=== PATIENT | female | born 1940 | race Hispanic/Latino ===

== ENCOUNTER 2019-02-01 05:46 | Day surgery (SDC) | payer MEDICARE ==
[2019-02-01] MEDS ORDERED: ANCEF/STERILE WATER 2 GM/20 ML 2 GM/20 ML SYRINGE IV NR (06:00)
[2019-02-01] MEDS ORDERED: LACTATED RINGERS 1,000 ML IV SCH (07:00)
--- NOTE | 2019-02-01 07:30 | Anesthesia Day of Surgery ---
Anesthesia Day of Surgery - Day of Surgery Patient Examined: Yes Patient H&P Reviewed: Yes Patient is NPO: Yes
--- NOTE | 2019-02-01 07:38 | Anesthesia Consultation ---
Anesthesia Consult and Med Hx Date of service: 02/01/19 - Airway Anesthetic Teeth Evaluation: Dentures (Pt has metal bars to hold dentures and has kept them in during prior surgeries) ROM Head & Neck: Adequate Mental/Hyoid Distance: Adequate Mallampati Class: Class II Intubation Access Assessment: Good - Pre-Operative Health Status ASA Pre-Surgery Classification: ASA2 Proposed Anesthetic Plan: General - Pulmonary Hx Smoking: Yes (Former) Hx Asthma: Yes (As a child) Hx Respiratory Symptoms: Yes (Seasonal allergies) - Cardiovascular System Hx Hypertension: Yes Hx Heart Murmur: Yes - Central Nervous System Hx Back Pain: Yes (S/P back surgery) Hx Psychiatric Problems: Yes - Gastrointestinal Hx Gastroesophageal Reflux Disease: Yes - Hematic Hx Anemia: Yes (Thalassemia minor) - Other Systems Hx Cancer: No
[2019-02-01] MEDS ORDERED: DIPRIVAN 10 MG/ML IV ONE (08:00)
[2019-02-01] MEDS ORDERED: XYLOCAINE MPF 2% ONE (08:00)
[2019-02-01] MEDS ORDERED: ZOFRAN IV PRN (08:00)
[2019-02-01] MEDS ORDERED: DECADRON ONE (08:00)
[2019-02-01] MEDS ORDERED: SUBLIMAZE IV PRN (08:00)
[2019-02-01] MEDS ORDERED: ZOFRAN ONE (08:00)
[2019-02-01] MEDS ORDERED: SUBLIMAZE ONE (08:01)
[2019-02-01] MEDS ORDERED: XYLOCAINE 1%/ EPI 1:100,000 INFILTRATI ONE ×2 (08:17→08:48)
[2019-02-01] MEDS ORDERED: NACL 0.9% IR ONE (08:48)
[2019-02-01] MEDS ORDERED: NEO SYNEPHRINE ONE (10:30)
[2019-02-01] MEDS: DILAUDID IV PRN ×2 (10:46→11:31)
[2019-02-01] MEDS ORDERED: VERSED ONE (11:07)
[2019-02-01] MEDS ORDERED: VERSED IV ONE (11:13)
--- NOTE | 2019-02-01 11:46 | Operative Report ---
Operative Report Operative Report: Plastic Surgery Operative Note Preoperative diagnosis: Bilateral mastodynia, symptomatic macromastia Post Operative diagnosis: Same Procedure: Bilateral explant with capsulectomy Surgeon: Dr. Jeannine Mariscal Cad Librarian: None Anesthesia: General Estimated blood loss: Minimal Specimen: En bloc resection of periprosthetic capsule with implant Indications: This patient is a 78-year-old female who presented with complaint of painful implants as well as excessively heavy implants since cosmetic augmentation performed several years ago. Patient states that she had neck and back and shoulder pain and also pain in around the breast which she attributes to the implants. She sought consultation for removal of the implants and does not want them replaced. We discussed the benefits as well as the risks of this procedure including but not limited to hematoma, seroma, infection, bleeding, loss of volume, breast ptosis, disfigurement, scarring, and the need for further surgery. Patient understood and accepted these risks and desired to proceed with explant and capsulectomy. Informed consent was obtained. Procedure: After review of pertinent history and physical exam findings, the patient was brought into the operating room and placed supine on the OR table. After induction of adequate general endotracheal anesthesia, the entire chest was prepped and draped in the usual sterile surgical fashion. To begin, on the right breast, 1% lidocaine with epinephrine was infiltrated into the skin where the incisions were marked. A #15 blade was used to make the incision followed by electrocautery to take gaining the dissection down through breast tissue to the level of the periprosthetic capsule. Of note, this was a submammary implant procedure and pectoralis muscle was noted to be intact posterior to the implant. Once this was identified, a periprosthetic dissection was performed, keeping it intact with the implant inside. The implant was noted to be intact, without gross evidence of rupture. Once the entire capsule and implant were removed en bloc, attention was turned to hemostasis. This was achieved with electrocautery after which the implant pocket was thoroughly irrigated with saline. Noting no active bleeding, and 19 [place] Jairon drain was placed within the submammary pocket and secured with 2-0 nylon suture. We then began a 3 layer closure using 2-0 Monocryl suture followed by 3-0 Monoderm Quill in 2 layers. The exact same procedure was repeated on the left side. Of note, a much smaller implant was removed from the left side and patient was noted to have more rosebud breast tissue on this side as well. All incisions were then sealed with Dermabond and dressed with Telfa and Tegaderm. The patient was then placed in a bra binder and awakened from general anesthesia. She was then transferred to recovery room in stable condition. There were no complications. All sponge needle and instrument counts were correct at the end of the case.
[2019-02-01 12:27] VITALS: BP 150/91
--- NOTE | 2019-02-01 19:04 | Post Anesthesia Evaluation ---
- Post Anesthesia Evaluation Patient Participated: Yes Airway Patent: Yes Stable Respiratory Function: Yes Nausea/Vomiting: No Temp > 96.8F: Yes Pain Manageable: Yes Adequeate Hydration: Yes Anesthesia Complications: No Block Receding Appropriately: Not Applicable Patient on Ventilator: No
== END 2019-02-01 05:47 | disposition home or self-care (01) ==
LOC: OR 05:46
PROVIDERS: ATTEND Plastic Surgery
DX: N64.4 Mastodynia (principal); N62 Hypertrophy of breast; G43.909 Migraine, unspecified, not intractable, without status migrainosus; J45.909 Unspecified asthma, uncomplicated; K21.9 Gastro-esophageal reflux disease without esophagitis; Z90.710 Acquired absence of both cervix and uterus; Z79.899 Other long term (current) drug therapy; Z88.0 Allergy status to penicillin; Z98.41 Cataract extraction status, right eye; Z88.5 Allergy status to narcotic agent; Z98.42 Cataract extraction status, left eye; Z98.82 Breast implant status; Z98.890 Other specified postprocedural states; Z86.2 Personal history of diseases of the blood and blood-forming organs and certain disorders involving the immune mechanism; Z88.8 Allergy status to other drugs, medicaments and biological substances
CPT/HCPCS: 19371; 88302; J0690; J1100; J1170; J2250; J2370; J2405; J2704; J3010; J7120

== ENCOUNTER 2019-02-01 21:42 | Inpatient (IN) | payer MEDICARE ==
[2019-02-01] MEDS ORDERED: TYLENOL PO PRN (22:19)
[2019-02-01] MEDS ORDERED: ZOFRAN IV PRN (22:19)
[2019-02-01] MEDS ORDERED: SODIUM CHLORIDE FLUSH SYRINGE 10 ML IV PRN (22:19)
[2019-02-01] MEDS ORDERED: LACTATED RINGERS 1,000 ML IV SCH (23:00)
[2019-02-02] MEDS: REGLAN PO PRN (02:18)
[2019-02-02] MEDS: ULTRAM PO PRN ×2 (02:18→10:20)
[2019-02-02] MEDS ORDERED: SOLU-Medrol IV PRN (05:23)
[2019-02-02] MEDS: BENADRYL PO PRN ×2 (05:34→11:00)
[2019-02-02] MEDS: NORCO 10/325 PO PRN ×3 (05:35→22:04)
[2019-02-02] MEDS ORDERED: NACL 0.9% 500 ML 500 ML IV ONE (05:37)
[2019-02-02] MEDS: ROBAXIN PO SCH ×3 (05:38→23:26)
[2019-02-02 07:06] LABS: Basophils % (Auto) 0.1 % (0.0-1.8); Lymphocytes % (Auto) 13.4 % (13.4-35.0); Mean Corpuscular HGB Conc 31 % (30-34); Monocytes # (Auto) 0.7 K/mm3 (0.0-0.8); Monocytes % (Auto) 9.4 % (0.0-7.3); Platelet Count 236 K/mm3 (140-440); Red Blood Count 2.89 M/mm3 (3.65-5.03)
[2019-02-02 07:20] LABS: Hematocrit 18.2 % (30.3-42.9); Hemoglobin 5.6 gm/dl (10.1-14.3); Mean Corpuscular Volume 63 fl (79-97)
--- NOTE | 2019-02-02 08:33 | Event Note ---
Date: 02/02/19
[2019-02-02] MEDS ORDERED: NACL 0.9% 500 ML 500 ML ONE ×2 (10:53→17:14)
--- NOTE | 2019-02-02 14:22 | Progress Note ---
Subjective Date of service: 02/02/19 Principal diagnosis: Syncope; Acute blood loss anemia Interval history: Plastic Surgery Progress Note This patient is a 78 year old female who underwent bilateral breast implant removal with capsulectomy on 02/01/19 in the morning. By evening after discharge she reports removing her bra binder, shortly after which point her right drain output began to increase dramatically. She then reports "passing out", which prompted her to call an ambulance. She was transported to [facility] where an H&H drawn came back at 7.4 and she had 75cc of bloody drainage in her bulb. I spoke with the ER phsyican and coordinated a direct admit to have her transferred to [facility] for further management. Overnight she reports pain, denies sob, cp or dizziness but is complaining of anxiety. She is used to taking 10mg of Vicodin every 6 hours for pain, so she is demanding this dose in-house. Physical Exam: AF; P 100's, BP 120/40's overnight. HEENT: NCAT; EOMI CVS: S1/S2, RRR Lungs: CTAB Breast: Left breast exam incisions clean and dry, unremarkable, drain output serosanguinous; right breast incisions clean and dry, drain output bloody, 25cc; exam suspicious for hematoma. Abd: Soft, nt/nd Extr: Warm, moves all extremities A/P POD #1 s/p bilateral explant with capsulectomy, now with active bleeding and hematoma of the right breast, s/p syncopal episode, Hgb now 5.4. For STAT blood transfusion. She will need blood from the [place] as she has rare antibodies from prior transfusions Patient revealed a history of Thalassemia today. We will consult Heme/Onc for further management recommendations. Plan for return to the OR for evacuation of hematoma, closure. Patient will return to step-down unit. Objective - Constitutional Vitals: Vital Signs - 12hr 02/02/19 02/02/19 02/02/19 02:18 05:35 08:08 Temperature 98.8 F Pulse Rate 103 H Respiratory 20 20 18 Rate Blood Pressure 126/45 O2 Sat by Pulse 99 Oximetry 02/02/19 02/02/19 02/02/19 10:48 11:15 11:30 Temperature 98.7 F 98.7 F Pulse Rate 105 H 95 H Respiratory 18 18 Rate Blood Pressure 134/46 130/51 O2 Sat by Pulse 100 96 95 Oximetry 02/02/19 11:39 Temperature Pulse Rate 105 H Respiratory Rate Blood Pressure O2 Sat by Pulse Oximetry - Labs CBC & Chem 7: 02/02/19 06:42 Labs: Abnormal lab results 02/02/19 02/02/19 Range/Units 06:42 06:48 RBC 2.89 L (3.65-5.03) M/mm3 Hgb 5.6 L* (10.1-14.3) gm/dl Hct 18.2 L* (30.3-42.9) % MCV 63 L (79-97) fl MCH 20 L (28-32) pg RDW 17.0 H (13.2-15.2) % [place] % (Auto) 9.4 H (0.0-7.3) % Lymph # 1.0 L (1.2-5.4) K/mm3 Seg Neutrophils % 77.1 H (40.0-70.0) % Crossmatch See Detail Medications & Allergies - Medications Allergies/Adverse Reactions: Allergies ammonium [From [place]ren[place]] Allergy (Verified 01/31/19 10:56) Respiratory Arrest codeine Allergy (Verified 01/31/19 10:56) Shortness of Breath herbal drugs [From [place]] Allergy (Verified 01/31/19 10:56) Respiratory Arrest magnesium gluconate [From [place]] Allergy (Verified 01/31/19 10:56) Respiratory Arrest Penicillins Allergy (Verified 01/31/19 10:56) Anaphylaxis potassium [From [place]] Allergy (Verified 01/31/19 10:56) Respiratory Arrest pregabalin [From Lyrica] Allergy (Verified 01/31/19 10:56) Disoriented prochlorperazine [From Compazine] Allergy (Verified 01/31/19 10:56) Shortness of Breath sodium [From [place]] Allergy (Verified 01/31/19 10:56) Respiratory Arrest tramadol Allergy (Verified 02/02/19 11:36) Shortness of Breath valerian [From [place]] Allergy (Verified 01/31/19 10:56) Respiratory Arrest benzin Allergy (Uncoded 01/31/19 10:56) Blisters, rash A skin adhesive Home Medications: Home Medications Medication Instructions Recorded Confirmed Last Taken Type HYDROcodone/ACETAMINOPHEN [Vicodin 1 tab PO Q6HR PRN 01/31/19 02/01/19 02/01/19 03:40 History HP 10-300 mg TAB] Lisinopril [Zestril TAB] 10 - 20 mg PO DAILY 01/31/19 01/31/19 01/31/19 08:00 History Montelukast Sodium 10 mg PO HS PRN 01/31/19 02/01/19 01/31/19 18:00 History Omeprazole 20 mg PO DAILY PRN 01/31/19 01/31/19 01/31/19 08:00 History methOCARBAMOL [Robaxin TAB] 500 mg PO Q6H PRN 01/31/19 02/01/19 01/31/19 20:00 History Active Medications: Generic Name Dose Route Start Last Admin Trade Name Freq PRN Reason Stop Dose Admin Acetaminophen 650 mg 02/01/19 22:19 02/02/19 11:00 Tylenol PO 650 mg Q6H PRN Administration Pain MILD(1-3)/Fever >100.5/SCANLON Acetaminophen/Hydrocodone Bitart 1 each 02/02/19 05:20 02/02/19 11:54 [place] 10/325 PO 1 each Q6H PRN Administration Pain, Moderate (4-6) Diphenhydramine HCl 25 mg 02/01/19 22:19 02/02/19 11:00 Benadryl PO 25 mg Q8H PRN Administration Itching Lactated Ringer's 1,000 mls @ 125 mls/hr 02/01/19 23:00 02/02/19 02:12 Lactated Ringers IV 125 mls/hr DIRECT DWIGHT Administration Methocarbamol 750 mg 02/02/19 06:00 02/02/19 11:58 Robaxin PO 750 mg Q6H DWIGHT Administration Methylprednisolone Sodium Succinate 40 mg 02/02/19 05:23 Solu-Medrol IV Q6H PRN Anaphylaxis Metoclopramide HCl 10 mg 02/01/19 22:19 02/02/19 02:18 Reglan PO 10 mg Q6H PRN Administration Nausea And Vomiting Ondansetron HCl 4 mg 02/01/19 22:19 Zofran IV Q8H PRN N/V unrelieved by Reglan Sodium Chloride 10 ml 02/01/19 22:19 02/02/19 02:15 Sodium Chloride Flush Syringe 10 Ml IV 10 ml PRN PRN Administration LINE FLUSH
[2019-02-02] MEDS ORDERED: MORPHINE ONE (14:34)
[2019-02-02] MEDS ORDERED: SUBLIMAZE ONE (14:34)
[2019-02-02] MEDS ORDERED: DIPRIVAN 10 MG/ML IV ONE (14:35)
[2019-02-02] MEDS ORDERED: VERSED ONE (14:47)
[2019-02-02] MEDS ORDERED: PHENYLEPHRINE/NS Syringe 1,000 MCG/10 ML IV ONE (15:12)
[2019-02-02] MEDS ORDERED: NACL 0.9% IR ONE ×2 (15:31→15:50)
[2019-02-02] MEDS ORDERED: HESPAN 500 ML IV ONE (15:53)
--- NOTE | 2019-02-02 16:50 | Operative Report ---
Operative Report Operative Report: Plastic Surgery Operative Note Preoperative Diagnosis: Right breast hematoma s/p right breast explant and caps ulectomy Postoperative Diagnosis: Same Procedure: Evacuation of hematoma, washout and closure Surgeon: Dr. Jeannine Mariscal Credit Relationship Manager: None Specimen: none EBL: 10ml Indications: This patient is a 78 year old female who was admitted last night postoperatively for complaint of syncope and increase in her right breast drain output several hours after undergoing explant with capsulectomy. Patient was discharged with minimal drain outputs, but reports taking her binder at home because she felt like it was too tight. Shortly thereafter, the drain outputs began to increase dramatically and she had a syncopal episode witnessed by her . She was transferred by ambulance to [facility], where she was noted to have acute blood loss anemia with a hemoglobin of 7.4. Patient was then transferred to [facility] for further management and admitted to Telemetry where a type and cross was ordered. She was noted to have antibodies that makes her blood type rare, so the [place] was contacted for PRBC's. Upon arrival transfusion was initiated and she was taken urgently to the OR for evacuation of hematoma and washout. Procedure: After review pertinent history and physical exam findings patient was brought into the operating room and placed supine on the OR table. After induction of adequate general endotracheal anesthesia the right chest was p repped and draped in the usual sterile surgical fashion. To begin, the Dermabond of the right breast incision was removed as well as the old drain. The incision was reopened using a Metzenbaum scissors to cut the existing Monoderm Quill sutures and an access to the submammary pocket. Once inside, 350-400 mL of hematoma was evacuated with suction and the pocket, which was noted to have scattered small bleeding fat but no discrete large source of bleeding, was irrigated using Pulsavac and further examined. Electrocautery was used for hemostasis. Disha was then applied for chemical hemostasis and a new 19 Fr Jairon drain was placed and secured with 2-0 Nylon suture. The wound was then closed in 3 layers using 2-0 Monocryl and 3-0 Monoderm Quill. All incisions were then sealed with Dermabond. Patient was then awakened from general anesthesia and transferred to recovery in stable condition. She tolerated the procedure well. There were no complications. All sponge, needle and instrument counts were correct at the end of the case.
[2019-02-02] MEDS: DILAUDID IV PRN ×2 (17:10→17:20)
--- NOTE | 2019-02-02 18:20 | History and Physical Report ---
History of Present Illness Date of examination: 02/02/19 Date of admission: 02/02/19 14:21 Medications and Allergies Allergies Allergy/AdvReac Type Severity Reaction Status Date / Time ammonium [From [place]renitas] Allergy Respiratory Verified 01/31/19 10:56 Arrest codeine Allergy Shortness Verified 01/31/19 10:56 of Breath herbal drugs [From [place]] Allergy Respiratory Verified 01/31/19 10:56 Arrest magnesium gluconate Allergy Respiratory Verified 01/31/19 10:56 [From [place]] Arrest Penicillins Allergy Anaphylaxis Verified 01/31/19 10:56 potassium [From [place]] Allergy Respiratory Verified 01/31/19 10:56 Arrest pregabalin [From Lyrica] Allergy Disoriented Verified 01/31/19 10:56 prochlorperazine Allergy Shortness Verified 01/31/19 10:56 [From Compazine] of Breath sodium [From [place]] Allergy Respiratory Verified 01/31/19 10:56 Arrest tramadol Allergy Shortness Verified 02/02/19 11:36 of Breath valerian [From [place]] Allergy Respiratory Verified 01/31/19 10:56 Arrest benzin Allergy Blisters, Uncoded 01/31/19 10:56 rash Home Medications Medication Instructions Recorded Confirmed Last Taken Type HYDROcodone/ACETAMINOPHEN [Vicodin 1 tab PO Q6HR PRN 01/31/19 02/01/19 02/01/19 03:40 History HP 10-300 mg TAB] Lisinopril [Zestril TAB] 10 - 20 mg PO DAILY 01/31/19 01/31/19 01/31/19 08:00 History Montelukast Sodium 10 mg PO HS PRN 01/31/19 02/01/19 01/31/19 18:00 History Omeprazole 20 mg PO DAILY PRN 01/31/19 01/31/19 01/31/19 08:00 History methOCARBAMOL [Robaxin TAB] 500 mg PO Q6H PRN 01/31/19 02/01/19 01/31/19 20:00 History Active Meds: Active Medications Acetaminophen (Tylenol) 650 mg PO Q6H PRN PRN Reason: Pain MILD(1-3)/Fever >100.5/SCANLON Last Admin: 02/02/19 11:00 Dose: 650 mg Documented by: Acetaminophen/Hydrocodone Bitart ([place] 10/325) 1 each PO Q6H PRN PRN Reason: Pain, Moderate (4-6) Last Admin: 02/02/19 11:54 Dose: 1 each Documented by: Diphenhydramine HCl (Benadryl) 25 mg PO Q8H PRN PRN Reason: Itching Last Admin: 02/02/19 11:00 Dose: 25 mg Documented by: Hydromorphone HCl (Dilaudid) 0.5 mg IV Q10MIN PRN PRN Reason: Pain , Severe (7-10) Stop: 02/03/19 17:06 Last Admin: 02/02/19 17:20 Dose: 0.5 mg Documented by: Lactated Ringer's (Lactated Ringers) 1,000 mls @ 125 mls/hr IV DIRECT DWIGHT Last Admin: 02/02/19 02:12 Dose: 125 mls/hr Documented by: Methocarbamol (Robaxin) 750 mg PO Q6H DWIGHT Last Admin: 02/02/19 11:58 Dose: 750 mg Documented by: Methylprednisolone Sodium Succinate (Solu-Medrol) 40 mg IV Q6H PRN PRN Reason: Anaphylaxis Metoclopramide HCl (Reglan) 10 mg PO Q6H PRN PRN Reason: Nausea And Vomiting Last Admin: 02/02/19 02:18 Dose: 10 mg Documented by: Ondansetron HCl (Zofran) 4 mg IV Q8H PRN PRN Reason: N/V unrelieved by Reglan Sodium Chloride (Sodium Chloride Flush Syringe 10 Ml) 10 ml IV PRN PRN PRN Reason: LINE FLUSH Last Admin: 02/02/19 02:15 Dose: 10 ml Documented by: Exam - Constitutional Vitals: Temp Pulse Resp BP Pulse Ox 97.8 F 88 15 158/47 100 02/02/19 17:30 02/02/19 17:30 02/02/19 17:30 02/02/19 17:30 02/02/19 17:30 Results - Labs CBC & Chem 7: 02/02/19 06:42 Labs: Laboratory Last Values WBC 7.6 K/mm3 (4.5-11.0) 02/02/19 06:42 RBC 2.89 M/mm3 (3.65-5.03) L 02/02/19 06:42 Hgb 5.6 gm/dl (10.1-14.3) L* 02/02/19 06:42 Hct 18.2 % (30.3-42.9) L* 02/02/19 06:42 MCV 63 fl (79-97) L 02/02/19 06:42 MCH 20 pg (28-32) L 02/02/19 06:42 MCHC 31 % (30-34) 02/02/19 06:42 RDW 17.0 % (13.2-15.2) H 02/02/19 06:42 Plt Count 236 K/mm3 (140-440) 02/02/19 06:42 Lymph % (Auto) 13.4 % (13.4-35.0) 02/02/19 06:42 [place] % (Auto) 9.4 % (0.0-7.3) H 02/02/19 06:42 Eos % (Auto) 0.0 % (0.0-4.3) 02/02/19 06:42 Baso % (Auto) 0.1 % (0.0-1.8) 02/02/19 06:42 Lymph # 1.0 K/mm3 (1.2-5.4) L 02/02/19 06:42 [place] # 0.7 K/mm3 (0.0-0.8) 02/02/19 06:42 Eos # 0.0 K/mm3 (0.0-0.4) 02/02/19 06:42 Baso # 0.0 K/mm3 (0.0-0.1) 02/02/19 06:42 Seg Neutrophils % 77.1 % (40.0-70.0) H 02/02/19 06:42 Seg Neutrophils # 5.8 K/mm3 (1.8-7.7) 02/02/19 06:42 Blood Type AB NEGATIVE 02/02/19 06:48 Antibody Screen Positive 02/02/19 06:48 Antibody Identification Anti-D (Actively Aquired) 02/02/19 06:48 Crossmatch See Detail 02/02/19 06:48
[2019-02-02] MEDS: MORPHINE IV PRN (21:02)
[2019-02-03] MEDS: MORPHINE IV PRN ×6 (00:04→20:47)
[2019-02-03] MEDS: NORCO 10/325 PO PRN ×4 (04:44→22:48)
[2019-02-03] MEDS: REGLAN PO PRN ×3 (04:44→22:49)
[2019-02-03] MEDS: BENADRYL PO PRN ×3 (04:46→22:49)
--- NOTE | 2019-02-03 05:26 | Event Note ---
Date: 02/02/19 [id number]
--- NOTE | 2019-02-03 05:56 | Event Note ---
Date: 02/02/19 See H/p in reports Acute blood loss anemia S/p Breast implant removal Syncope yesterday sec to Hypovolemia and blood loss. HTN
[2019-02-03] MEDS: ROBAXIN PO SCH ×4 (06:30→23:02)
--- NOTE | 2019-02-03 06:44 | History and Physical Report ---
CHIEF COMPLAINT: 1. Syncope. 2. Severe blood loss anemia. HISTORY OF PRESENT ILLNESS: A 78-year-old female was admitted last night perioperatively for syncope and increased drainage from her right breast drain. The patient had a bilateral implant removal. Apparently, the patient took her binder at home out, because it was too tight. After taking the binder out, the drain outputs began to increase dramatically and she had a syncopal episode witnessed by her . The patient called the EMS and the ambulance took her to [facility] where she was noted to have acute blood loss anemia with a hemoglobin of 7.4. The patient was transferred to [facility] for further management and was admitted to telemetry where a type and cross was ordered. She was noted to have antibodies that made her blood type rare. The [place] was contacted to give 1 unit of PRBCs. Upon arrival, transfusion was initiated and she was taken urgently to the OR for evacuation of hematoma and washout. The patient was taken to the OR and hematoma of 300-400 mL from the right breast was evacuated. Post-evacuation, the patient was in pain, but was doing relatively well. The patient is being admitted to [facility] for further observation. PAST MEDICAL HISTORY: Significant for hypertension, on lisinopril 10 mg daily. PAST SURGICAL HISTORY: Breast implants many years ago. Breast implant removal on 02/01/2019 and hematoma removal from the right breast on 02/02/2019. SOCIAL HISTORY: Does not smoke. No alcohol, no recreational drugs. FAMILY HISTORY: Hypertension. REVIEW OF SYSTEMS: Significant for severe pain in the surgical site on the right breast and the left breast, more so in the right breast region. Otherwise, review of systems negative. PHYSICAL EXAMINATION: GENERAL: Elderly female, cooperative during examination, in pain. VITAL SIGNS: Temperature 97.6, pulse is 100, blood pressure is 155/78. Repeat pulse rate was 88. HEENT: Unremarkable. Pupils equal and reactive. NECK: Supple, no lymphadenopathy, no thyromegaly. LUNGS: Clear to auscultation and percussion. Good air entry. BREASTS: Both the breasts in binders and drains present. CARDIOVASCULAR: S1, S2 heard. No gallop, no murmur, no rub. Apical impulse in left fifth intercostal space in midclavicular line. ABDOMEN: Soft and benign. No hepatosplenomegaly, no guarding, no rigidity. Hernial orifices are normal. EXTREMITIES: Good pedal pulses. No pedal edema. CENTRAL NERVOUS SYSTEM: Alert and oriented x 4, nonfocal exam. LABORATORY DATA: Significant for hemoglobin of 5.6 and hematocrit of 18.2, platelet count of 236,000. ASSESSMENT AND PLAN: 1. Acute anemia secondary to blood loss. The patient to be transfused 1-2 units of packed red blood cells. The patient has lot of antibodies. It is difficult to get the blood from the [place], [place] to provide the blood 1-2 units. 2. Right breast hematoma evacuated. Breast surgery consult placed with Dr. Mariscal. 3. Hypertension. We will initiate blood pressure medicines when the blood pressure goes up. Presently, the patient's blood pressure is in the normal range. The patient had syncope yesterday because of hypotension. 4. Syncope secondary to blood loss anemia and hypotension. No syncope workup because the etiology is very clear secondary to blood loss anemia and hypovolemia. 5. Deep venous thrombosis prophylaxis, sequential compression devices only. 6. Pain management. Morphine 4 mg q. 3 p.r.n. The patient already on very low dose morphine pump. 7. Also, gastrointestinal prophylaxis. CRITICAL CARE STATEMENT: The high probability of a clinically significant, sudden or life-threatening deterioration of the hematologic, pulmonary, cardiac and renal systems required my full and direct attention, intervention, and personal management. The aggregate critical care time was 35 minutes. This time is in addition to time spent performing reported procedures, but includes the following, data review and interpretation, patient assessment and monitoring of vital signs, documentation and medication orders and management. DISCHARGE PLANNING: Whenever the patient is hemodynamically stable and the blood counts are stable, the patient can be discharged. JOB# [id number] ANJELICA/EBONY
--- NOTE | 2019-02-03 07:17 | Hem/Onc Progress Note ---
Assessment and Plan 1. Microcytic anemia, likely secondary to bleed. There is a mention of thalassemia. RBC count is low. At this time, it is predominantly iron deficiency. 2. Multiple antibodies. The patient says she was transfused in and since then, she has multiple antibodies. I spoke to the blood bank. They are trying to find appropriate match. 3. For the breast implant removal and capsulectomy-related bleeding, surgical team is taking her to Operating Room. 4. We will look into iron supplement, deficiency investigation and follow the patient. iv iron trial pt says alpha thal trait pt denies allergy to sodium IV iron ferrlecit oral MVI - Patient Problems (1) Anemia Status: Acute Qualifiers: Anemia type: iron deficiency Iron deficiency anemia type: other iron deficiency Qualified Code(s): D50.8 - Other iron deficiency anemias Subjective Date of service: 02/03/19 Principal diagnosis: anemia Interval history: s/p sx Objective - Exam Narrative Exam: Pain - chest - post sx General appearance no acute distress Performance status limited self care Eyes - no icterus ENT - no bleeding LNs cervical not palpable Neck - no LN Respiratory Normal Breath sounds - CTA CVS S1 S2 + Extremities no edema General GI Soft Rectal deferred female - deferred Skin warm Musculoskeletal moving extremitites Neurologically awake - answers questions - Constitutional Vitals: Last Vital Signs Temp 98.8 F 02/03/19 03:57 Pulse 88 02/02/19 18:55 Resp 11 L 02/03/19 04:44 BP 145/55 02/02/19 18:55 Pulse Ox 100 02/02/19 20:38 - Labs Lab Results: Laboratory Results - last 24 hr 02/02/19 02/02/19 06:42 06:48 WBC 7.6 RBC 2.89 L Hgb 5.6 L* Hct 18.2 L* MCV 63 L MCH 20 L MCHC 31 RDW 17.0 H Plt Count 236 Lymph % (Auto) 13.4 Baso % (Auto) 0.1 Lymph # 1.0 L Blood Type AB NEGATIVE Antibody Screen Positive Antibody Identification Anti-D (Actively Aquired) Crossmatch See Detail Medications & Allergies - Medications Allergies/Adverse Reactions: Allergies ammonium [From Serenitas] Allergy (Verified 01/31/19 10:56) Respiratory Arrest codeine Allergy (Verified 01/31/19 10:56) Shortness of Breath herbal drugs [From [place]] Allergy (Verified 01/31/19 10:56) Respiratory Arrest magnesium gluconate [From [place]] Allergy (Verified 01/31/19 10:56) Respiratory Arrest Penicillins Allergy (Verified 01/31/19 10:56) Anaphylaxis potassium [From [place]] Allergy (Verified 01/31/19 10:56) Respiratory Arrest pregabalin [From Lyrica] Allergy (Verified 01/31/19 10:56) Disoriented prochlorperazine [From Compazine] Allergy (Verified 01/31/19 10:56) Shortness of Breath sodium [From [place]] Allergy (Verified 01/31/19 10:56) Respiratory Arrest tramadol Allergy (Verified 02/02/19 11:36) Shortness of Breath valerian [From [place]] Allergy (Verified 01/31/19 10:56) Respiratory Arrest benzin Allergy (Uncoded 01/31/19 10:56) Blisters, rash A skin adhesive Home Medications: Home Medications Medication Instructions Recorded Confirmed Last Taken Type HYDROcodone/ACETAMINOPHEN [Vicodin 1 tab PO Q6HR PRN 01/31/19 02/04/19 02/01/19 03:40 History HP 10-300 mg TAB] Montelukast Sodium 10 mg PO HS PRN 01/31/19 02/04/19 01/31/19 18:00 History Omeprazole 20 mg PO NOW PRN 01/31/19 02/04/19 01/31/19 08:00 History methOCARBAMOL [Robaxin TAB] 500 mg PO Q6H PRN 01/31/19 02/04/19 01/31/19 20:00 History Ferrous Gluconate [Fergon 325 MG 324 mg PO QDAY #30 tablet 02/05/19 Unknown Rx tab] Lisinopril [Zestril TAB] 40 mg PO QDAY #30 tablet 02/05/19 Unknown Rx hydrOXYzine PAMOATE [Vistaril] 50 mg PO TID 30 Days capsule 02/05/19 Unknown Rx predniSONE [Deltasone] 20 mg PO QDAY #7 tab 02/05/19 Unknown Rx Active Medications: Generic Name Dose Route Start Last Admin Trade Name Freq PRN Reason Stop Dose Admin Acetaminophen 650 mg 02/01/19 22:19 02/02/19 11:00 Tylenol PO 650 mg Q6H PRN Administration Pain MILD(1-3)/Fever >100.5/SCANLON Acetaminophen/Hydrocodone Bitart 1 each 02/02/19 05:20 02/03/19 04:44 Wheeler 10/325 PO 1 each Q6H PRN Administration Pain, Moderate (4-6) Diphenhydramine HCl 25 mg 02/01/19 22:19 02/03/19 04:46 Benadryl PO 25 mg Q8H PRN Administration Itching Ferrous Gluconate 324 mg 02/03/19 10:00 Fergon PO QDAY DWIGHT Hydromorphone HCl 0.5 mg 02/02/19 17:07 02/02/19 17:20 Dilaudid IV 02/03/19 17:06 0.5 mg Q10MIN PRN Administration Pain , Severe (7-10) Lactated Ringer's 1,000 mls @ 125 mls/hr 02/01/19 23:00 02/02/19 02:12 Lactated Ringers IV 125 mls/hr DIRECT DWIGHT Administration Methocarbamol 750 mg 02/02/19 06:00 02/03/19 06:30 Robaxin PO 750 mg Q6H DWIGHT Administration Methylprednisolone Sodium Succinate 40 mg 02/02/19 05:23 Solu-Medrol IV Q6H PRN Anaphylaxis Metoclopramide HCl 10 mg 02/01/19 22:19 02/03/19 04:44 Reglan PO 10 mg Q6H PRN Administration Nausea And Vomiting Morphine Sulfate 4 mg 02/02/19 20:39 02/03/19 03:06 Morphine IV 4 mg Q3H PRN Administration Pain , Severe (7-10) Multivitamins 5 ml 02/03/19 10:00 Centrum Liq PO QDAY DWIGHT Ondansetron HCl 4 mg 02/01/19 22:19 Zofran IV Q8H PRN N/V unrelieved by Reglan Sodium Chloride 10 ml 02/01/19 22:19 02/02/19 02:15 Sodium Chloride Flush Syringe 10 Ml IV 10 ml PRN PRN Administration LINE FLUSH
--- NOTE | 2019-02-03 07:41 | Consultation ---
REFERRING PHYSICIAN: Dr. Church. REASON FOR CONSULTATION: Severe anemia, antibodies present. HISTORY OF PRESENT ILLNESS: I saw the patient, a 78-year-old female in the medical floor. The patient had bilateral breast implants removal with capsulectomy on 02/01/2019 in the morning. The patient states her hemoglobin was 9 before surgery; at one time, hemoglobin post-surgery was 7. In evening time when she removed the bra binder, there was a drain which had increased blood and ambulance was called. She was taken to [place] and later, she was transferred to [facility]. At [place], she was informed that because of her antibodies, [facility] is trying to find the right blood. At [facility], hemoglobin was found to be 5. I have been asked to evaluate the patient. There is a plan by Dr. Mariscal to take her back to surgery. At this time, no headache, no visual disturbances. No ear discharge. Still has a drain and blood in the drain in the chest area post-implant removal and capsulectomy. No vomiting, no diarrhea. There is a mention of thalassemia as per the notes. PAST MEDICAL HISTORY: As above. SOCIAL HISTORY: Lives with . ALLERGIES: TO AMMONIA, CODEINE, HERBAL DRUGS, AND FEW OTHERS. PHYSICAL EXAMINATION: VITAL SIGNS: Temperature 98.9, pulse 88, respirations 12, BP 145/55. HEENT: Pallor present, no icterus. NECK: No neck lymph nodes. HEART: S1, S2, drain present in the chest. ABDOMEN: Soft. NEUROLOGIC: Alert, awake, oriented. EXTREMITIES: No calf tenderness. LABORATORY DATA: White cells 7, hemoglobin 5.6, MCV 63, platelets 236, red cell count is 2.89. ASSESSMENT AND PLAN: 1. Microcytic anemia, likely secondary to bleed. There is a mention of thalassemia. RBC count is low. At this time, it is predominantly iron deficiency. 2. Multiple antibodies. The patient says she was transfused in and since then, she has multiple antibodies. I spoke to the blood bank. They are trying to find appropriate match. 3. For the breast implant removal and capsulectomy-related bleeding, surgical team is taking her to Operating Room. 4. We will look into iron supplement, deficiency investigation and follow the patient. JOB# [id number] NM/NTS
[2019-02-03 08:44] LABS: Hematocrit 25.8 % (30.3-42.9); Hemoglobin 8.6 gm/dl (10.1-14.3); Mean Corpuscular HGB Conc 33 % (30-34); Mean Corpuscular Volume 73 fl (79-97); Platelet Count 218 K/mm3 (140-440); Red Blood Count 3.53 M/mm3 (3.65-5.03)
[2019-02-03] MEDS ORDERED: FERRLECIT 125 MG in NACL 0.9% 100 ML IV ONE (09:00)
[2019-02-03 09:08] LABS: Alanine Aminotransferase 10 units/L (7-56); Albumin 3.5 g/dL (3.9-5); BUN/Creatinine Ratio 11; Blood Urea Nitrogen 9 mg/dL (7-17); Calcium 8.6 mg/dL (8.4-10.2); Hemolysis Index 1
[2019-02-03 09:10] LABS: Iron 22 ug/dL (37-170); Total Iron Binding Capacity 225 mcg/dL (250-450)
[2019-02-03 09:22] LABS: Red Cell Distribution Width 27.9 % (13.2-15.2)
[2019-02-03] MEDS: Centrum Liq PO SCH (09:57)
[2019-02-03] MEDS: FERGON PO SCH (09:57)
--- NOTE | 2019-02-03 10:49 | Progress Note ---
Subjective Date of service: 02/03/19 Principal diagnosis: anemia Interval history: Plastic Surgery Progress Patient awake and alert, comfortable. She removed her MARY wrap against my orders. No further inappropriate bleeding. AFVSS Breasts no evidence of hematoma seroma or infection. Drains appropriate serosanguinous output Labs Hgb 8.6 post transfusion 2 units Plan: Ok to d/c from plastics standpoint. Discussed with patient the need to follow my written instructions explicitly, an d how her failure to do so resulted in this series of events. She understands she MUST wear her binder 28/12 and only remove to shower starting tmw, replace immediately therafter. Follow up as an outpatient in one week. Objective - Constitutional Vitals: Vital Signs - 12hr 02/03/19 02/03/19 02/03/19 00:04 02:00 03:00 Temperature 97.6 F Pulse Rate 87 Respiratory 16 15 Rate Respiratory 17 Rate [Bilateral Chest] O2 Sat by Pulse 98 Oximetry 02/03/19 02/03/19 02/03/19 03:06 03:57 04:44 Temperature 98.8 F Pulse Rate Respiratory 19 11 L Rate Respiratory Rate [Bilateral Chest] O2 Sat by Pulse Oximetry - Labs CBC & Chem 7: 02/03/19 08:21 02/03/19 08:21 Labs: Abnormal lab results 02/02/19 02/03/19 02/03/19 Range/Units 06:48 08:21 08:21 RBC 3.53 L (3.65-5.03) M/mm3 Hgb 8.6 L D (10.1-14.3) gm/dl Hct 25.8 L D (30.3-42.9) % MCV 73 L (79-97) fl MCH 24 L (28-32) pg RDW 27.9 H (13.2-15.2) % Iron (37-170) ug/dL TIBC (250-450) mcg/dL Total Protein 5.9 L (6.3-8.2) g/dL Albumin 3.5 L (3.9-5) g/dL Crossmatch See Detail 02/03/19 Range/Units 08:21 RBC (3.65-5.03) M/mm3 Hgb (10.1-14.3) gm/dl Hct (30.3-42.9) % MCV (79-97) fl MCH (28-32) pg RDW (13.2-15.2) % Iron 22 L (37-170) ug/dL TIBC 225 L (250-450) mcg/dL Total Protein (6.3-8.2) g/dL Albumin (3.9-5) g/dL Crossmatch Medications & Allergies - Medications Allergies/Adverse Reactions: Allergies ammonium [From [place]ren[place]] Allergy (Verified 01/31/19 10:56) Respiratory Arrest codeine Allergy (Verified 01/31/19 10:56) Shortness of Breath herbal drugs [From [place]] Allergy (Verified 01/31/19 10:56) Respiratory Arrest magnesium gluconate [From [place]] Allergy (Verified 01/31/19 10:56) Respiratory Arrest Penicillins Allergy (Verified 01/31/19 10:56) Anaphylaxis potassium [From [place]] Allergy (Verified 01/31/19 10:56) Respiratory Arrest pregabalin [From Lyrica] Allergy (Verified 01/31/19 10:56) Disoriented prochlorperazine [From Compazine] Allergy (Verified 01/31/19 10:56) Shortness of Breath sodium [From [place]] Allergy (Verified 01/31/19 10:56) Respiratory Arrest tramadol Allergy (Verified 02/02/19 11:36) Shortness of Breath valerian [From [place]] Allergy (Verified 01/31/19 10:56) Respiratory Arrest benzin Allergy (Uncoded 01/31/19 10:56) Blisters, rash A skin adhesive Home Medications: Home Medications Medication Instructions Recorded Confirmed Last Taken Type HYDROcodone/ACETAMINOPHEN [Vicodin 1 tab PO Q6HR PRN 01/31/19 02/01/19 02/01/19 03:40 History HP 10-300 mg TAB] Lisinopril [Zestril TAB] 10 - 20 mg PO DAILY 01/31/19 01/31/19 01/31/19 08:00 History Montelukast Sodium 10 mg PO HS PRN 01/31/19 02/01/19 01/31/19 18:00 History Omeprazole 20 mg PO DAILY PRN 01/31/19 01/31/19 01/31/19 08:00 History methOCARBAMOL [Robaxin TAB] 500 mg PO Q6H PRN 01/31/19 02/01/19 01/31/19 20:00 History Active Medications: Generic Name Dose Route Start Last Admin Trade Name Freq PRN Reason Stop Dose Admin Acetaminophen 650 mg 02/01/19 22:19 02/02/19 11:00 Tylenol PO 650 mg Q6H PRN Administration Pain MILD(1-3)/Fever >100.5/SCANLON Acetaminophen/Hydrocodone Bitart 1 each 02/02/19 05:20 02/03/19 09:57 Mason 10/325 PO 1 each Q6H PRN Administration Pain, Moderate (4-6) Diphenhydramine HCl 25 mg 02/01/19 22:19 02/03/19 04:46 Benadryl PO 25 mg Q8H PRN Administration Itching Ferrous Gluconate 324 mg 02/03/19 10:00 02/03/19 09:57 Fergon PO 324 mg QDAY DWIGHT Administration Hydromorphone HCl 0.5 mg 02/02/19 17:07 02/02/19 17:20 Dilaudid IV 02/03/19 17:06 0.5 mg Q10MIN PRN Administration Pain , Severe (7-10) Lactated Ringer's 1,000 mls @ 125 mls/hr 02/01/19 23:00 02/02/19 02:12 Lactated Ringers IV 125 mls/hr DIRECT DWIGHT Administration Methocarbamol 750 mg 02/02/19 06:00 02/03/19 06:30 Robaxin PO 750 mg Q6H DWIGHT Administration Methylprednisolone Sodium Succinate 40 mg 02/02/19 05:23 Solu-Medrol IV Q6H PRN Anaphylaxis Metoclopramide HCl 10 mg 02/01/19 22:19 02/03/19 04:44 Reglan PO 10 mg Q6H PRN Administration Nausea And Vomiting Morphine Sulfate 4 mg 02/02/19 20:39 02/03/19 06:30 Morphine IV 4 mg Q3H PRN Administration Pain , Severe (7-10) Multivitamins 5 ml 02/03/19 10:00 02/03/19 09:57 Centrum Liq PO 5 ml QDAY DWIGHT Administration Ondansetron HCl 4 mg 02/01/19 22:19 Zofran IV Q8H PRN N/V unrelieved by José Miguel Sodium Chloride 10 ml 02/01/19 22:19 02/02/19 02:15 Sodium Chloride Flush Syringe 10 Ml IV 10 ml PRN PRN Administration LINE FLUSH
[2019-02-04] MEDS: MORPHINE IV PRN ×4 (03:59→22:31)
[2019-02-04] MEDS: ROBAXIN PO SCH ×3 (06:00→18:30)
[2019-02-04] MEDS: NORCO 10/325 PO PRN ×2 (06:46→16:24)
[2019-02-04] MEDS: REGLAN PO PRN (08:36)
[2019-02-04] MEDS: FERGON PO SCH (09:39)
[2019-02-04] MEDS: Centrum Liq PO SCH (09:39)
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
[2019-02-04] MEDS: VISTARIL PO SCH (19:49)
[2019-02-04] MEDS ORDERED: SINGULAIR PO PRN (20:12)
[2019-02-04] MEDS ORDERED: NON-FORMULARY (Omeprazole [Omeprazole] 20 MG) PO PRN (20:12)
[2019-02-04] MEDS ORDERED: PROTONIX PO PRN (20:26)
[2019-02-04] MEDS ORDERED: ZESTRIL PO SCH (22:00)
--- NOTE | 2019-02-04 22:51 | Progress Note ---
Assessment and Plan 78 y/o lady who had mamie breast implant. Removed the binders because she felt they were too tight. Had hematoma in the right breats resulting in syncope and and collapse. Was taken emergently to OR where the hematoma was evacuated. Pt had blood transfusion - Syncope and collapse from anemia -Anemia s/p blood transfusion secondary to hematoma from breast implant following removal of dressing - S/p mamie breast implant with evacuation of hematoma from the right breast on - HTN Optimize BP control - PTSD On visteril - DVT PPX with scd only b/c Anemia and hematoma - Disposition: Optimize BP control from the 170s and D/c home Subjective Date of service: 02/03/19 Principal diagnosis: anemia Interval history: no new complaint Objective - Exam Narrative Exam: Constitutional: Well-nourished well-developed. In no distress Head: Normocephalic atraumatic Eyes: Pupils are equal round and reactive to light Nose: No enlarged turbinates, no septal deviation. Mouth: Moist mucous membranes. Neck: Supple no thyromegaly. No bruit. No JVD Heart: Regular rate and rhythm, S1-S2 normal. No rubs murmurs or gallop Lungs: Clear to auscultation bilaterally. no rales or rhonchi Abdomen: Soft, nontender. Bowel sound are present. Extremities: No edema, no cyanosis, no clubbing. Neuro: Alert oriented Oriented x3. No focal sensory or motor deficit. Skin: No rashes or hyperpigmented spots Musculoskeletal system: No joint pain or swelling Hematological: No petechia or subcutanous hemorrhages. Immunological: No multiple septic spots on the skin Lymphatic: No generalized lymphadenopathy Psychiatry: Euthymic. Calm. - Constitutional Vitals: Vital Signs - 12hr 02/04/19 02/04/19 02/04/19 10:51 11:00 11:11 Temperature Pulse Rate 80 77 98 H Pulse Rate [ From Monitor] Respiratory 14 15 18 Rate Respiratory Rate [Bilateral Chest] Blood Pressure 167/59 138/59 138/59 O2 Sat by Pulse 92 95 87 Oximetry 02/04/19 02/04/19 02/04/19 11:21 11:31 11:41 Temperature Pulse Rate 100 H 97 H 110 H Pulse Rate [ From Monitor] Respiratory 13 8 L 17 Rate Respiratory Rate [Bilateral Chest] Blood Pressure 138/59 138/59 138/59 O2 Sat by Pulse 100 100 97 Oximetry 02/04/19 02/04/19 02/04/19 11:51 12:00 12:01 Temperature 98.3 F Pulse Rate 95 H 110 H Pulse Rate [ From Monitor] Respiratory 13 15 21 Rate Respiratory Rate [Bilateral Chest] Blood Pressure 138/59 147/90 O2 Sat by Pulse 100 97 98 Oximetry 02/04/19 02/04/19 02/04/19 12:10 12:21 12:31 Temperature Pulse Rate 102 H 104 H 102 H Pulse Rate [ From Monitor] Respiratory 16 17 12 Rate Respiratory Rate [Bilateral Chest] Blood Pressure 147/90 147/90 147/90 O2 Sat by Pulse 84 Oximetry 02/04/19 02/04/19 02/04/19 12:41 12:51 13:00 Temperature Pulse Rate 104 H 104 H 94 H Pulse Rate [ From Monitor] Respiratory 12 12 10 L Rate Respiratory Rate [Bilateral Chest] Blood Pressure 147/90 147/90 155/51 O2 Sat by Pulse 84 86 Oximetry 02/04/19 02/04/19 02/04/19 13:11 13:21 13:31 Temperature Pulse Rate 92 H 81 81 Pulse Rate [ From Monitor] Respiratory 12 16 11 L Rate Respiratory Rate [Bilateral Chest] Blood Pressure 155/51 155/51 155/51 O2 Sat by Pulse Oximetry 02/04/19 02/04/19 02/04/19 13:41 13:51 14:00 Temperature Pulse Rate 88 91 H Pulse Rate [ From Monitor] Respiratory 11 L 12 Rate Respiratory 17 Rate [Bilateral Chest] Blood Pressure 155/51 155/51 O2 Sat by Pulse Oximetry 02/04/19 02/04/19 02/04/19 14:16 14:20 14:30 Temperature Pulse Rate 94 H 93 H Pulse Rate [ From Monitor] Respiratory 13 10 L Rate Respiratory Rate [Bilateral Chest] Blood Pressure 155/51 155/51 144/60 O2 Sat by Pulse 73 L 98 96 Oximetry 02/04/19 02/04/19 02/04/19 14:40 14:51 15:00 Temperature Pulse Rate 94 H 101 H 96 H Pulse Rate [ From Monitor] Respiratory 18 14 12 Rate Respiratory Rate [Bilateral Chest] Blood Pressure 144/60 144/49 O2 Sat by Pulse 95 96 96 Oximetry 02/04/19 02/04/19 02/04/19 15:11 15:21 15:31 Temperature Pulse Rate 89 93 H 86 Pulse Rate [ From Monitor] Respiratory 12 14 12 Rate Respiratory Rate [Bilateral Chest] Blood Pressure 144/49 144/49 144/49 O2 Sat by Pulse 96 96 98 Oximetry 02/04/19 02/04/19 02/04/19 15:41 15:51 16:00 Temperature 98.6 F Pulse Rate 87 89 96 H Pulse Rate [ From Monitor] Respiratory 13 9 L 8 L Rate Respiratory Rate [Bilateral Chest] Blood Pressure 144/49 144/49 160/74 O2 Sat by Pulse 97 99 98 Oximetry 02/04/19 02/04/19 02/04/19 16:11 16:21 16:31 Temperature Pulse Rate 100 H 99 H 99 H Pulse Rate [ From Monitor] Respiratory 16 18 17 Rate Respiratory Rate [Bilateral Chest] Blood Pressure 160/74 160/74 160/74 O2 Sat by Pulse 99 97 100 Oximetry 02/04/19 02/04/19 02/04/19 16:41 16:51 17:01 Temperature Pulse Rate 104 H 107 H 104 H Pulse Rate [ From Monitor] Respiratory 15 15 13 Rate Respiratory Rate [Bilateral Chest] Blood Pressure 160/74 160/74 166/45 O2 Sat by Pulse 99 98 97 Oximetry 02/04/19 02/04/19 02/04/19 17:11 17:21 17:31 Temperature Pulse Rate 106 H 108 H 106 H Pulse Rate [ From Monitor] Respiratory 17 16 13 Rate Respiratory Rate [Bilateral Chest] Blood Pressure 166/45 166/45 166/45 O2 Sat by Pulse 86 Oximetry 02/04/19 02/04/19 02/04/19 17:41 17:51 18:00 Temperature Pulse Rate 102 H 116 H 92 H Pulse Rate [ From Monitor] Respiratory 18 18 15 Rate Respiratory Rate [Bilateral Chest] Blood Pressure 166/45 166/45 166/72 O2 Sat by Pulse 96 99 97 Oximetry 02/04/19 02/04/19 02/04/19 18:11 18:23 18:31 Temperature Pulse Rate 149 H 101 H 99 H Pulse Rate [ From Monitor] Respiratory 18 24 21 Rate Respiratory Rate [Bilateral Chest] Blood Pressure 166/72 166/72 166/72 O2 Sat by Pulse 98 Oximetry 02/04/19 02/04/19 02/04/19 18:41 18:51 19:00 Temperature Pulse Rate 98 H 99 H 94 H Pulse Rate [ From Monitor] Respiratory 16 15 17 Rate Respiratory Rate [Bilateral Chest] Blood Pressure 166/72 166/72 176/68 O2 Sat by Pulse 98 97 97 Oximetry 02/04/19 02/04/19 02/04/19 19:11 19:16 19:21 Temperature Pulse Rate 101 H 101 H 89 Pulse Rate [ From Monitor] Respiratory 17 11 L Rate Respiratory Rate [Bilateral Chest] Blood Pressure 176/68 176/68 O2 Sat by Pulse 99 98 Oximetry 02/04/19 02/04/19 02/04/19 19:45 19:50 21:12 Temperature 99.3 F Pulse Rate Pulse Rate [ 89 From Monitor] Respiratory 14 Rate Respiratory Rate [Bilateral Chest] Blood Pressure 176/64 O2 Sat by Pulse 99 Oximetry - Labs CBC & Chem 7: 02/05/19 05:43 02/05/19 05:43
--- NOTE | 2019-02-05 00:17 | Event Note ---
Date: 02/05/19 Pt had BP 178/83, prior to admission pt was on Lisinopril 10mg daily. Restarted home dose of Lisinopril and BP was re-check 1 hout after receiving med. BP now 145/60. Will continue to monitor BP.
[2019-02-05] MEDS: ROBAXIN PO SCH ×3 (01:00→12:17)
[2019-02-05] MEDS: MORPHINE IV PRN (02:29)
[2019-02-05] MEDS: REGLAN PO PRN (02:44)
[2019-02-05] MEDS: NORCO 10/325 PO PRN ×2 (06:08→12:17)
[2019-02-05 06:10] LABS: Hematocrit 29.3 % (30.3-42.9); Hemoglobin 9.6 gm/dl (10.1-14.3); Mean Corpuscular HGB Conc 33 % (30-34); Mean Corpuscular Volume 73 fl (79-97); Platelet Count 263 K/mm3 (140-440)
[2019-02-05 06:20] LABS: Red Cell Distribution Width 28.2 % (13.2-15.2)
[2019-02-05 06:39] LABS: Alanine Aminotransferase 7 units/L (7-56); Albumin 3.9 g/dL (3.9-5); BUN/Creatinine Ratio 10; Blood Urea Nitrogen 9 mg/dL (7-17); Calcium 9.4 mg/dL (8.4-10.2); Hemolysis Index 1
--- NOTE | 2019-02-05 06:50 | Hem/Onc Progress Note ---
Assessment and Plan 1. Microcytic anemia, likely secondary to bleed. There is a mention of thalassemia. RBC count is low. At this time, it is predominantly iron deficiency. 2. Multiple antibodies. The patient says she was transfused in and since then, she has multiple antibodies. I spoke to the blood bank. They are trying to find appropriate match. 3. For the breast implant removal and capsulectomy-related bleeding, surgical team is taking her to Operating Room. 4. iron supplement, deficiency investigation and follow the patient. iv iron trial pt says alpha thal trait pt denies allergy to sodium IV iron ferrlecit oral MVI - Patient Problems (1) Anemia Status: Acute Qualifiers: Anemia type: iron deficiency Iron deficiency anemia type: other iron deficiency Qualified Code(s): D50.8 - Other iron deficiency anemias Subjective Date of service: 02/05/19 Principal diagnosis: anemia Interval history: feeling better Objective - Exam Narrative Exam: Pain - none General appearance no acute distress Performance status limited self care Eyes - no icterus ENT - no bleeding LNs cervical not palpable Neck - no LN Respiratory Normal Breath sounds - CTA CVS S1 S2 + Extremities no edema General GI Soft Rectal deferred female - deferred Skin warm Musculoskeletal moving extremitites Neurologically awake - answers questions - Constitutional Vitals: Last Vital Signs Temp 98.4 F 02/05/19 03:30 Pulse 98 H 02/05/19 04:00 Resp 15 02/05/19 04:00 BP 132/59 02/05/19 03:21 Pulse Ox 98 02/05/19 04:00 - Labs Lab Results: Laboratory Results - last 24 hr 02/05/19 02/05/19 05:43 05:43 WBC 7.9 RBC 4.00 Hgb 9.6 L Hct 29.3 L MCV 73 L MCH 24 L MCHC 33 RDW 28.2 H Plt Count 263 Sodium 139 Potassium 4.2 Chloride 99.2 Carbon Dioxide 28 Anion Gap 16 BUN 9 Creatinine 0.9 Estimated GFR > 60 BUN/Creatinine Ratio 10 Glucose 106 H Calcium 9.4 Total Bilirubin 0.40 AST 10 ALT 7 Alkaline Phosphatase 84 Total Protein 6.6 Albumin 3.9 Albumin/Globulin Ratio 1.4 Medications & Allergies - Medications Allergies/Adverse Reactions: Allergies ammonium [From [place]] Allergy (Verified 01/31/19 10:56) Respiratory Arrest codeine Allergy (Verified 01/31/19 10:56) Shortness of Breath herbal drugs [From [place]] Allergy (Verified 01/31/19 10:56) Respiratory Arrest magnesium gluconate [From [place]] Allergy (Verified 01/31/19 10:56) Respiratory Arrest Penicillins Allergy (Verified 01/31/19 10:56) Anaphylaxis potassium [From [place]] Allergy (Verified 01/31/19 10:56) Respiratory Arrest pregabalin [From Lyrica] Allergy (Verified 01/31/19 10:56) Disoriented prochlorperazine [From Compazine] Allergy (Verified 01/31/19 10:56) Shortness of Breath sodium [From [place]] Allergy (Verified 01/31/19 10:56) Respiratory Arrest tramadol Allergy (Verified 02/02/19 11:36) Shortness of Breath valerian [From [place]] Allergy (Verified 01/31/19 10:56) Respiratory Arrest benzin Allergy (Uncoded 01/31/19 10:56) Blisters, rash A skin adhesive Home Medications: Home Medications Medication Instructions Recorded Confirmed Last Taken Type HYDROcodone/ACETAMINOPHEN [Vicodin 1 tab PO Q6HR PRN 01/31/19 02/04/19 02/01/19 03:40 History HP 10-300 mg TAB] Montelukast Sodium 10 mg PO HS PRN 01/31/19 02/04/19 01/31/19 18:00 History Omeprazole 20 mg PO NOW PRN 01/31/19 02/04/19 01/31/19 08:00 History methOCARBAMOL [Robaxin TAB] 500 mg PO Q6H PRN 01/31/19 02/04/19 01/31/19 20:00 History Ferrous Gluconate [Fergon 325 MG 324 mg PO QDAY #30 tablet 02/05/19 Unknown Rx tab] Lisinopril [Zestril TAB] 40 mg PO QDAY #30 tablet 02/05/19 Unknown Rx hydrOXYzine PAMOATE [Vistaril] 50 mg PO TID 30 Days capsule 02/05/19 Unknown Rx predniSONE [Deltasone] 20 mg PO QDAY #7 tab 02/05/19 Unknown Rx Active Medications: Generic Name Dose Route Start Last Admin Trade Name Freq PRN Reason Stop Dose Admin Acetaminophen 650 mg 02/01/19 22:19 02/02/19 11:00 Tylenol PO 650 mg Q6H PRN Administration Pain MILD(1-3)/Fever >100.5/SCANLON Acetaminophen/Hydrocodone Bitart 1 each 02/02/19 05:20 02/05/19 06:08 [place] 10/325 PO 1 each Q6H PRN Administration Pain, Moderate (4-6) Ferrous Gluconate 324 mg 02/03/19 10:00 02/04/19 09:39 Fergon PO 324 mg QDAY DWIGHT Administration Hydroxyzine Pamoate 50 mg 02/04/19 20:00 02/04/19 19:49 Vistaril PO 50 mg TID DWIGHT Administration Lactated Ringer's 1,000 mls @ 125 mls/hr 02/01/19 23:00 02/02/19 02:12 Lactated Ringers IV 125 mls/hr DIRECT DWIGHT Administration Lisinopril 40 mg 02/05/19 10:00 Zestril PO QDAY DWIGHT Methocarbamol 750 mg 02/02/19 06:00 02/05/19 06:19 Robaxin PO 750 mg Q6H DWIGHT Administration Methylprednisolone Sodium Succinate 40 mg 02/02/19 05:23 Solu-Medrol IV Q6H PRN Anaphylaxis Metoclopramide HCl 10 mg 02/01/19 22:19 02/05/19 02:44 Reglan PO 10 mg Q6H PRN Administration Nausea And Vomiting Montelukast Sodium 10 mg 02/04/19 20:12 Singulair PO HS PRN seasonal allergies Morphine Sulfate 4 mg 02/02/19 20:39 02/05/19 02:29 Morphine IV 4 mg Q3H PRN Administration Pain , Severe (7-10) Multivitamins 5 ml 02/03/19 10:00 02/04/19 09:39 Centrum Liq PO 5 ml QDAY DWIGHT Administration Ondansetron HCl 4 mg 02/01/19 22:19 Zofran IV Q8H PRN N/V unrelieved by Reglan Pantoprazole Sodium 20 mg 02/04/19 20:26 Protonix PO QDAY PRN ACID REFLUX Sodium Chloride 10 ml 02/01/19 22:19 02/02/19 02:15 Sodium Chloride Flush Syringe 10 Ml IV 10 ml PRN PRN Administration LINE FLUSH
[2019-02-05 07:06] LABS: Anisocytosis 3+; Basophils % (Manual) 0 % (0.0-1.8); Hypochromasia 1+; Total Cells Counted 100
--- NOTE | 2019-02-05 07:27 | Discharge Summary ---
Providers - Providers Date of Admission: 02/02/19 14:21 Attending physician: NIMESH BERRY MD 02/02/19 08:10 Consult to Physician [CONS] Routine Comment: Consulting Provider: VENESSA SHAFFER Physician Instructions: Reason For Exam: Post op anemia due to acute blood loss 02/03/19 06:07 Consult to Physician [CONS] Routine Comment: Consulting Provider: KEKE ANNE Physician Instructions: Reason For Exam: Rt breast hematoma 02/03/19 20:25 psychiatry consult [Consult to Mental Health] [CONS] Routine Reason For Exam: Pt expressed need for anti-anxiety meds s/t PTSD Place consult to:: Mental Health Notified:: Caryn Phone number called:: [phone] Was contact made?: Yes If yes, spoke with:: Caryn Time called:: 20:29 Primary care physician: KEKE ANNE MD Hospitalization Hospital course: 78 y/o lady who had mamie breast implant. Removed the binders because she felt they were too tight. Had hematoma in the right breats resulting in syncope and and collapse. Was taken emergently to OR where the hematoma was evacuated. Pt had blood transfusion - Syncope and collapse from anemia -Anemia s/p blood transfusion-2 UNITS secondary to hematoma from breast implant following removal of dressing - S/p mamie breast implant with evacuation of hematoma from the right on - HTN Optimize BP control - PTSD On visteril - DVT PPX with scd only b/c Anemai and hematoma - Disposition: Optimize BP control from the 170s and D/c home Plastic Surgery Progress Patient awake and alert, comfortable. She removed her MARY wrap against my orders. No further inappropriate bleeding. AFVSS Breasts no evidence of hematoma seroma or infection. Drains appropriate serosanguinous output Labs Hgb 8.6 post transfusion 2 units Plan: Ok to d/c from plastics standpoint. Discussed with patient the need to follow my written instructions explicitly, and how her failure to do so resulted in this series of events. She understands she MUST wear her binder 28/12 and only remove to shower starting tmw, replace immediately therafter. Follow up as an outpatient in one week. Impression: primary complaint is anxiety/panic history of post traumatic stress disorder Recommendation: benzodiazepines not recommended to be used concurrently with opiates She declines antidepressants as they are first line for anxiety disorders and PTSD Vistaril 50mg tid ( she reports 25mg was ineffective the last time she took it) Benadryl discontinued. Vistaril can be used for itching also but has anxiolytic properties also. dispo: She was provided with outpatient psychiatry referrals will staff with Dr. Daniela Aguayo Disposition: [id number] HOME UNDER HOME HLTH Time spent for discharge: 35 mins Core Measure Documentation - Palliative Care Palliative Care/ Comfort Measures: Not Applicable Exam - Constitutional Vitals: Temp Pulse Resp BP Pulse Ox 98.4 F 98 H 15 132/59 98 02/05/19 03:30 02/05/19 04:00 02/05/19 04:00 02/05/19 03:21 02/05/19 04:00 Plan Activity: advance as tolerated, fall precautions Diet: low fat Wound: per your surgeon's advice (She understands she MUST wear her binder 24/ and only remove to shower starting tmw, replace immediately therafter.) Special Instructions: record daily BP diary Durable Medical Equipment Needed Upon Discharge: other (BP CUFF) Health Concerns: Need to recheck H/H and also renal function in 1 week Follow up with: KEKE ANNE MD [Primary Care Provider] - [address] [facility] [Outside] - 7 Days Prescriptions: predniSONE [Deltasone] 20 mg PO QDAY #7 tab Ferrous Gluconate [Fergon 325 MG tab] 324 mg PO QDAY #30 tablet hydrOXYzine PAMOATE [Vistaril] 50 mg PO TID 30 Days capsule Lisinopril [Zestril TAB] 40 mg PO QDAY #30 tablet
[2019-02-05] MEDS: VISTARIL PO SCH ×2 (08:10→14:16)
[2019-02-05] MEDS: Centrum Liq PO SCH (09:09)
[2019-02-05] MEDS: FERGON PO SCH (09:10)
[2019-02-05 09:14] VITALS: BP 127/59
[2019-02-05] MEDS ORDERED: ZESTRIL PO SCH (10:00)
== END 2019-02-05 13:25 | disposition home or self-care (01) | DRG 920 ==
LOC: UNDOADMOB 21:42 → 3A 21:42 → 4A 02-02 00:57 → OBSVTOIN 02-02 14:21 → IMCU 02-02 19:03
PROVIDERS: ADMIT Plastic Surgery; ATTEND Internal Medicine
PROC: 0H9T00Z Drainage of Right Breast with Drainage Device, Open Approach (ICD-10-PCS; principal; 2019-02-02)
PROC: 30233N1 Transfusion of Nonautologous Red Blood Cells into Peripheral Vein, Percutaneous Approach (ICD-10-PCS; 2019-02-02)
DX: L76.32 Postprocedural hematoma of skin and subcutaneous tissue following other procedure (principal); D62 Acute posthemorrhagic anemia; D56.9 Thalassemia, unspecified; I95.9 Hypotension, unspecified; F41.9 Anxiety disorder, unspecified; E86.1 Hypovolemia; D50.8 Other iron deficiency anemias; F43.10 Post-traumatic stress disorder, unspecified; X58.XXXA Exposure to other specified factors, initial encounter; I10 Essential (primary) hypertension; Y83.8 Other surgical procedures as the cause of abnormal reaction of the patient, or of later complication, without mention of misadventure at the time of the procedure; Z79.899 Other long term (current) drug therapy; Z82.49 Family history of ischemic heart disease and other diseases of the circulatory system; Z88.5 Allergy status to narcotic agent; Z88.8 Allergy status to other drugs, medicaments and biological substances; Z88.6 Allergy status to analgesic agent; Z88.0 Allergy status to penicillin; Y93.89 Activity, other specified; Y99.8 Other external cause status; Y92.098 Other place in other non-institutional residence as the place of occurrence of the external cause
CPT/HCPCS: 36415; 80053; 82607; 82728; 82747; 83550; 85007; 85025; 85027; 86850; 86870; 86900; 86901; 86922; 93005; 93010; 94760; G0378; A4217; G0379; J1170; J2250; J2270; J2370; J2704; J2916; J2920; J3010; J7040; J7120; P9016; Q0177